=== PATIENT | male | born 1950 | race Two or more races ===

== ENCOUNTER 2018-03-27 13:26 | Emergency (ER) | payer BC, OTHER ==
[~2018-03-27] VITALS: Ht 177.8 cm; Wt 82.6 kg
[2018-03-27 13:40] VITALS: BP 105/66
[2018-03-27 14:19] LABS: Basophils # (auto) 0 uL; Basophils % (auto) 0.4 % (0.0-2.0); Eosinophils # (auto) 0.1 uL; Eosinophils % (auto) 1.2 % (0.0-7.0); Hematocrit 34.4 % (41.0-53.0); Hemoglobin 11.1 g/dL (13.5-17.5); Lymphocytes # (auto) 1.1 uL; Lymphocytes % (auto) 14.6 % (10.0-50.0); Mean Corpuscular Hemoglobin 29.3 pg (28.0-32.0); Mean Corpuscular Hgb Conc. 32.4 g/dL (32.0-36.0); Mean Corpuscular Volume 90.6 fL (80.0-100.0); Monocytes # (auto) 0.8 uL; Monocytes % (auto) 10.7 % (0.0-12.0); Neutrophils # (auto) 5.3 uL; Neutrophils % (auto) 73.1 % (37.0-80.0); Platelet Count (auto) 175 10^3/uL (140-450); Red Cell Distribution Width 14.8 % (11.8-14.3); White Blood Cell 7.2 10^3/uL (4.4-10.8)
[2018-03-27 14:24] LABS: Urine Bacteria FEW /hpf (None Seen); Urine Blood Negative /uL (Negative); Urine Specific Gravity 1.041 (1.001-1.035); Urine WBC 3 /hpf (0 - 3)
[2018-03-27 14:46] LABS: Alanine Aminotransferase < 6 U/L (16-61); Albumin 2.3 g/dL (3.4-5.0); Anion Gap 10 (5-15); Aspartate Aminotransferase 20 U/L (15-37); BUN/Creatinine Ratio 15.9; Blood Urea Nitrogen 20 mg/dL (7-18); Calcium 8.3 mg/dL (8.5-10.1); Carbon Dioxide 21 mmol/L (21-32); Chloride 102 mmol/L (98-107); GFR African American 74 mL/min; GFR Non-African American 61 mL/min; Glucose 136 mg/dL (74-106); Magnesium 1.7 mg/dL (1.6-2.6); Potassium 4.2 mmol/L (3.5-5.1); Sodium 133 mmol/L (136-145)
[2018-03-27 14:51] LABS: Alkaline Phosphatase 83 U/L (45-117); Bilirubin, Total 0.5 mg/dL (0.2-1.0); Total Protein 7.6 g/dL (6.4-8.2)
== END 2018-03-27 14:56 | disposition left against medical advice (07) ==
LOC: EDBD 13:30 → ER 13:30
DX: L02.211 Cutaneous abscess of abdominal wall (principal); Z53.21 Procedure and treatment not carried out due to patient leaving prior to being seen by health care provider
CPT/HCPCS: 36415; 80053; 81001; 83735; 84484; 85025; 93005